=== PATIENT | male | born 1950 | race Caucasian/White ===

== ENCOUNTER 2017-05-08 14:19 | Emergency (ER) | payer MEDICARE, OTHER ==
[2017-05-08] MEDS ORDERED: IPRATROPIUM/ALBUTEROL (0.5MG/3MG) NEB INH ONE (14:23)
[2017-05-08] MEDS ORDERED: METHYLPREDNISOLONE PF 125MG/VIAL IVP ONE (14:31)
[2017-05-08] MEDS ORDERED: ALBUTEROL SULFATE (0.083%) 2.5 MG/3 ML NEB INH ONE (14:36)
[2017-05-08] MEDS ORDERED: ASPIRIN 81 MG CHEWABLE TABLET PO ONE (15:05)
--- NOTE | 2017-05-08 15:08 | Emergency Department Record ---
History of Present Illness - General Chief Complaint: Difficulty Breathing Stated Complaint: difficulty breathing Time Seen by Provider: 05/08/17 15:05 Source: Patient, RN notes reviewed Mode of Arrival: Wheelchair - History of Present Illness Initial Comments: dysnea for two week progressively worse Cough and congestion, PMH of emphysema and he smokes and planning to stop today and sputum is thick. Initially pulse ox 88% on room air and he doesn't use oxygen at home he was over using his inhalers at home.No chest pain. Patient has left amputation [id number] 30\ .7... .0 .0. . 896 Onset/Timin -: Week(s) Improves With: Oxygen Worsens With: Nothing Known History Of: Asthma, COPD, Other Treatments Prior to Arrival: None - Related Data Home Medications Medication Instructions Recorded Confirmed Last Taken Fexofenadine HCl [Ana Allergy] 180 mg PO DAILY 03/17/16 05/08/17 05/07/17 Metformin HCl 1,000 mg PO DAILY 03/17/16 05/08/17 05/08/17 Pentazocine HCl/Naloxone HCl 2 each PO DAILY 03/17/16 05/08/17 05/07/17 [Pentazocine-Naloxone Tablet] Tamsulosin HCl [Flomax] 0.4 mg PO DAILY 03/17/16 05/08/17 05/08/17 Albuterol Sulfate [Proventil Hfa] 1 - 2 puff INH .EVERY 4-6 HOURS PRN 05/08/17 05/08/17 05/08/17 Budesonide/Formoterol Fumarate 10.2 gm IH BID 05/08/17 05/08/17 05/08/17 [Symbicort 160-4.5 Mcg Inhaler] Furosemide [Lasix] 20 mg PO DAILY 05/08/17 05/08/17 05/08/17 Pirbuterol Acetate [Maxair 14 gm IH ASDIR 05/08/17 05/08/17 Unknown Autohaler] Potassium Chloride 2 tab PO DAILY 05/08/17 05/08/17 05/08/17 Tiotropium [place] [Spiriva 4 gm IH BID 05/08/17 05/08/17 05/08/17 Respimat] Allergies Allergy/AdvReac Type Severity Reaction Status Date / Time codeine Allergy Intermediate ITCHING Verified 03/17/16 11:38 Travel Screening - Travel/Exposure Within Last 30 Days Have you traveled within the last 30 days?: No - Travel/Exposure Within Last Year Have you traveled outside the [place] in the last year?: No - Additonal Travel Details Have you been exposed to anyone with a communicable illness?: No - Travel Symptoms Symptom Screening: None Review of Systems Reviewed: No additional complaints except as noted below Constitutional: Reports: As per HPI. Denies: Chills, Fever, Malaise, Night sweats, Weakness, Weight change Eyes: Reports: As per HPI. Denies: Eye discharge, Eye pain, Photophobia, Vision change ENT: Reports: As per HPI. Denies: Congestion, Dental pain, Ear pain, Epistaxis , Hearing loss, Throat pain Respiratory: Reports: As per HPI, Cough, Wheezes. Denies: Dyspnea, Hemoptysis, Stridor Cardiovascular: Reports: As per HPI. Denies: Arrhythmia, Chest pain, Dyspnea on exertion, Edema, Murmurs, Orthopnea, Palpitations, Paroxysmal nocturnal dyspnea, Rheumatic Fever, Syncope Endocrine: Reports: As per HPI. Denies: Fatigue, Heat or cold intolerance, Polydipsia, Polyuria Gastrointestinal: Reports: As per HPI. Denies: Abdominal pain, Constipation, Diarrhea, Hematemesis, Hematochezia, Melena, Nausea, Vomiting Genitourinary: Reports: As per HPI. Denies: Dysuria, Frequency, Hematuria, Incontinence, Retention, Testicular pain, Testicular mass, Urgency Musculoskeletal: Reports: As per HPI. Denies: Arthralgia, Back pain, Gout, Joint swelling, Myalgia, Neck pain Skin: Reports: As per HPI. Denies: Bruising, Change in color, Change in hair/ nails, Lesions, Pruritus, Rash Neurological: Reports: As per HPI. Denies: Abnormal gait, Confusion, Headache, Numbness, Paresthesias, Seizure, Tingling, Tremors, Vertigo, Weakness Psychiatric: Reports: As per HPI. Denies: Anxiety, Auditory hallucinations, Depression, Homicidal thoughts, Suicidal thoughts, Visual hallucinations Hematological/Lymphatic: Reports: As per HPI. Denies: Anemia, Blood Clots, Easy bleeding, Easy bruising, Swollen glands Past Medical History - SOCIAL HISTORY Smoking Status: Current every day smoker Alcohol Use: Heavy Drug Use: None - RESPIRATORY Hx Respiratory Disorders: Yes Hx COPD: Yes - CARDIOVASCULAR Hx Cardio Disorders: No - NEURO Hx Neuro Disorders: No - GI Hx GI Disorders: No - Hx Genitourinary Disorders: Yes Hx Bladder Problem: Yes - ENDOCRINE Hx Endocrine Disorders: Yes Hx Diabetes: Yes - MUSCULOSKELETAL Hx Musculoskeletal Disorders: Yes Hx Arthritis: Yes - PSYCH Hx Psych Problems: No - HEMATOLOGY/ONCOLOGY Hx Hematology/Oncology Disorders: No Family Medical History Any Significant Family History?: No Hx Cancer: Father, Mother *Cancer Comment: Mother- ovarian Father-liver Physical Exam - General General Appearance: Alert, Oriented x3, Cooperative, Moderate distress - Head Head exam: Normal inspection - Eye Eye exam: Normal appearance, PERRL Pupils: Normal accommodation - ENT ENT exam: Normal exam, Mucous membranes moist, Normal external ear exam, Normal orophraynx, TM's normal bilaterally Ear exam: Normal external inspection. negative: External canal tenderness Nasal Exam: Normal inspection. negative: Discharge, Sinus tenderness Mouth exam: Normal external inspection, Tongue normal Teeth exam: Normal inspection. negative: Dental caries Throat exam: Normal inspection. negative: Tonsillar erythema, Tonsillar exudate - Neck Neck exam: Normal inspection, Full ROM. negative: Tenderness - Respiratory Respiratory exam: Wheezes. negative: Respiratory distress - Cardiovascular Cardiovascular Exam: Regular rate, Normal rhythm, Normal heart sounds - GI/Abdominal GI/Abdominal exam: Soft, Normal bowel sounds. negative: Tenderness - Rectal Rectal exam: Deferred - exam: Deferred - Extremities Extremities exam: Normal inspection, Full ROM, Normal capillary refill. negative: Tenderness - Back Back exam: Reports: Normal inspection, Full ROM. Denies: Muscle spasm, Rash noted, Tenderness - Neurological Neurological exam: Alert, Normal gait, Oriented X3, Reflexes normal - Psychiatric Psychiatric exam: Normal affect, Normal mood - Skin Skin exam: Dry, Intact, Normal color, Warm Course Vital Signs 05/08/17 05/08/17 05/08/17 14:20 14:26 14:47 Pulse Rate 112 H 106 H Respiratory 28 H 32 H 36 H Rate Blood Pressure 188/108 Pulse Ox 88 L 94 L Patient is breathing better. - Reevaluation(s) Reevaluation #1: patient would like to go to [facility] 05/08/17 16:09 Reevaluation #2: Discussed case with Dr. Nereu Gardner ED physician and he was going to check case management and get back with us. 05/08/17 16:24 Reevaluation #3: discussed case with Dr. Meléndez and he accepted the transfer. 05/08/17 16:33 Medical Decision Making - Data Complexity MDM Data: Labs Ordered and/or Reviewed (tropominin I indeterminate), X-Ray Ordered and/or Reviewed (pulmonary congestion and interstitual changes and hyperinflation), EKG Ordered and/or Reviewed (NSR no acute changes, tachycardia) - Lab Data Result diagrams: 05/08/17 15:18 05/08/17 15:18 Disposition Clinical Impression: COPD (chronic obstructive pulmonary disease) with acute bronchitis, Elevated troponin I level Disposition: Acute Care Hospital Transfer Condition: (3) Guarded Forms: Patient Portal Access Time of Disposition: 16:36
[2017-05-08 15:29] LABS: BASO % 0.2 % (0-6); EOS % 1.9 % (0-6); GRAN % 73.9 % (47-80); HEMATOCRIT 38.7 % (42.0-52.0); HEMOGLOBIN 12.1 gm/dl (14.0-18.0); LYMPH % 13.2 % (16-45); MEAN CELL VOLUME 83.9 fl (81-97); MEAN CORPUSCULAR HEMOGLOBIN 26.2 pg (27-33); MEAN CORPUSCULAR HGB CONC 31.3 g/dl (32-36); MEAN PLATELET VOLUME 9.1 fl (7.4-10.4); MONO % 10.8 % (0-9); PLATELET COUNT 439 K/uL (130-400); RED BLOOD COUNT 4.61 M/uL (4.40-5.70); RED CELL DISTRIBUTION WIDTH 16.6 % (11.5-14.5); WHITE BLOOD COUNT W/O DIFF 10.8 K/uL (4.2-12.2)
[2017-05-08 15:38] LABS: BLOOD UREA NITROGEN 13 mg/dL (9-20); EST GLOMERULAR FILTRATION RATE > 60 ml/min; GLUCOSE,RANDOM 148 mg/dL (70-110)
[2017-05-08 15:39] LABS: INR 1.02; PROTHROMBIN TIME (PATIENT) 11.5 SECONDS (9.5-12.1)
[2017-05-08] MEDS ORDERED: CEFTRIAXONE SODIUM 1 GM in 0.9 % SODIUM CHLORIDE 100ML 100 ML IVPB ONE (15:43)
[2017-05-08] MEDS ORDERED: AZITHROMYCIN 500 MG TABLET PO ONE (15:43)
[2017-05-08 15:49] LABS: CKMB 3.7 ug/L (0-6); TROPONIN I 0.101 ng/mL (0.00-0.034)
[2017-05-08] MEDS ORDERED: FUROSEMIDE IV 40MG/4ML VIAL IVP ONE (16:03)
--- NOTE | 2017-05-09 15:20 | RADIOLOGY REPORT ---
EXAM: CHEST 2 VIEWS HISTORY: SHORTNESS OF BREATH AND FATIGUE. TECHNIQUE: Chest x-ray, two views. COMPARISON: 05/13/11. FINDINGS: The heart is borderline enlarged. There is no mediastinal mass. There is some prominence of the interstitial lung markings. No focal area of lung consolidation seen. Otherwise, unremarkable. IMPRESSION: 1. THERE IS SOME PROMINENCE OF THE INTERSTITIAL LUNG MARKINGS. THIS MAY BE SOMEWHAT ARTIFACTUAL DUE TO LIGHT TECHNIQUE, ALTHOUGH MILD CHRONIC INTERSTITIAL LUNG DISEASE OR MILD VASCULAR CONGESTION WOULD BE DIFFICULT TO EXCLUDE. CLINICAL CORRELATION AND FOLLOW-UP SUGGESTED. 2. THE LUNGS ARE HYPERINFLATED. 3. BORDERLINE CARDIOMEGALY. JOB NUMBER: [id number] [facility]
== END 2017-05-08 18:08 | disposition short-term general hospital (02) ==
LOC: ER 14:19
DX: J44.9 Chronic obstructive pulmonary disease, unspecified (principal); J20.9 Acute bronchitis, unspecified; R79.89 Other specified abnormal findings of blood chemistry; F17.210 Nicotine dependence, cigarettes, uncomplicated; E11.9 Type 2 diabetes mellitus without complications; Z79.84 Long term (current) use of oral hypoglycemic drugs
CPT/HCPCS: 71020; 80048; 82553; 83880; 84484; 85025; 85610; 85730; 93005; 93010; 94640; 96365; 96375; 99285; J1940; J2930; J7613

== ENCOUNTER 2018-04-21 12:53 | Emergency (ER) | payer MEDICARE, OTHER ==
[2018-04-21] MEDS ORDERED: Diph,Pert(Acell),Tet Vac 0.5 ML SYR IM ONE (12:56)
--- NOTE | 2018-04-21 13:01 | Emergency Department Record ---
History of Present Illness - General Stated Complaint: LACERATIONS LEG/ARM Time Seen by Provider: 04/21/18 12:56 Source: Patient Mode of Arrival: Ambulatory Limitations: No limitations - History of Present Illness Initial Comments: 67 yo male presents with abrasion to the hand, left arm and right leg. He was mowing with a [employer] mower and hit a fence. He is on Plavix and bleeds easily. He is due for a tetanus shot. No pain. He has extensive prior injuries fro [place] but denies any new injuries. MD Complaint: Fall -: Minutes(s) Fall From: Chair (Mower, seated) When Fall Occurred: Just prior to arrival Fall Witnessed: No Place Fall Occurred: Other Loss of Consciousness: None Prolonged Down Time?: No Symptoms Prior to Fall: None - Related Data Previous Rx's Medication Instructions Recorded Hydrocodone/Acetaminophen [Hinkle 1 tab PO Q8H PRN #10 tab 04/21/18 5mg/325mg] Allergies Allergy/AdvReac Type Severity Reaction Status Date / Time codeine Allergy Intermediate ITCHING Verified 03/17/16 11:38 Review of Systems Constitutional: Denies: Chills, Fever, Weakness Eyes: Denies: Eye discharge, Vision change ENT: Denies: Congestion, Throat pain Respiratory: Denies: Cough Cardiovascular: Denies: Chest pain Endocrine: Denies: Fatigue Gastrointestinal: Denies: Abdominal pain, Diarrhea, Nausea, Vomiting Genitourinary: Denies: Dysuria, Frequency, Hematuria Musculoskeletal: Denies: Arthralgia, Joint swelling, Myalgia Skin: Reports: Other (abrasions and skin tears). Denies: Bruising Neurological: Denies: Headache, Numbness, Weakness Psychiatric: Denies: Anxiety Hematological/Lymphatic: Reports: Easy bleeding, Easy bruising Past Medical History - SOCIAL HISTORY Smoking Status: Current every day smoker Drug Use: None - RESPIRATORY Hx Respiratory Disorders: Yes Hx COPD: Yes - CARDIOVASCULAR Hx Cardio Disorders: No - NEURO Hx Neuro Disorders: No - GI Hx GI Disorders: No - Hx Genitourinary Disorders: Yes Hx Bladder Problem: Yes - ENDOCRINE Hx Endocrine Disorders: Yes Hx Diabetes: Yes - MUSCULOSKELETAL Hx Musculoskeletal Disorders: Yes Hx Arthritis: Yes - PSYCH Hx Psych Problems: No - HEMATOLOGY/ONCOLOGY Hx Hematology/Oncology Disorders: No Family Medical History Hx Cancer: Father, Mother *Cancer Comment: Mother- ovarian Father-liver Physical Exam - General General Appearance: Alert, Oriented x3, Cooperative, No acute distress Limitations: No limitations - Head Head exam: Atraumatic, Normal inspection Head exam detail: negative: Abrasion, Contusion, Hematoma - Eye Eye exam: Normal appearance. negative: Conjunctival injection, Scleral icterus - ENT ENT exam: Normal exam, Mucous membranes moist Ear exam: Normal external inspection Nasal Exam: Normal inspection Mouth exam: Normal external inspection - Neck Neck exam: Normal inspection, Full ROM. negative: Tenderness - Respiratory Respiratory exam: Normal lung sounds bilaterally. negative: Respiratory distress - Cardiovascular Cardiovascular Exam: Regular rate, Normal rhythm, Normal heart sounds - GI/Abdominal GI/Abdominal exam: Soft. negative: Tenderness - Rectal Rectal exam: Deferred - exam: Deferred - Extremities Extremities exam: Other (abrasions). negative: Normal inspection Image of Full Body: 1 - patchy abrasions and skin tears, superficial, 2 - superficail abrasion - Back Back exam: Reports: Full ROM. Denies: CVA tenderness (R), CVA tenderness (L) - Neurological Neurological exam: Alert, Oriented X3 - Psychiatric Psychiatric exam: Normal affect, Normal mood - Skin Skin exam: Abrasion Course - Reevaluation(s) Reevaluation #1: 04/21/18 13:00 The wounds to the arm and the leg are very superficial The wounds were thoroughly cleaned and dressed. A few small areas were sharply debrided No areas in need of sutures His tetanus is not up to date and will be provided He was sent with dressing and advised that the length of time for healing will be prolonged 04/21/18 17:47 Disposition Disposition: Discharge Clinical Impression: Abrasion, Skin tear Disposition: Home, Self-Care Condition: (1) Good Instructions: Abrasion (ED), Skin Tear (ED) Additional Instructions: Clean the wounds daily See your doctor next week for rechecks of the healing Return if you have any concerns about infection or healing of the wounds Prescriptions: Hydrocodone/Acetaminophen [[place] 5mg/325mg] 1 tab PO Q8H PRN #10 tab PRN Reason: Pain - General Forms: Patient Portal Access Time of Disposition: 13:02 Quality - Quality Measures Quality Measures: N/A - Blood Pressure Screening Does Patient Have Any of the Following: Active Dx of HTN Blood Pressure Classification: Pre-Hypertensive BP Reading Systolic Measurement: 126 Diastolic Measurement: 78 Screening for High Blood Pressure: Patient Exclusion, Hx of HTN [[id number]]
[2018-04-21] MEDS ORDERED: ESMOLOL 2.5GM/250ML 250 ML IV SCH (14:15)
== END 2018-04-21 14:11 | disposition home or self-care (01) ==
LOC: ER 12:53
DX: S50.812A Abrasion of left forearm, initial encounter (principal); S80.211A Abrasion, right knee, initial encounter; W28.XXXA Contact with powered lawn mower, initial encounter; Y93.19 Activity, other involving water and watercraft; Y92.017 Garden or yard in single-family (private) house as the place of occurrence of the external cause; F17.210 Nicotine dependence, cigarettes, uncomplicated; J44.9 Chronic obstructive pulmonary disease, unspecified; I10 Essential (primary) hypertension; E11.9 Type 2 diabetes mellitus without complications
CPT/HCPCS: 90715; 96372; 99283